=== PATIENT | male | born 1945 | race Caucasian/White ===

== ENCOUNTER 2016-11-30 13:45 | Emergency (ER) | payer MEDICARE, BC ==
[~2016-11-30] VITALS: Ht 180.3 cm; Wt 93.0 kg
[~2016-11-30 13:45] MED LIST: CLIN1CAP5 PO; LOSA50TA PO; WARF5TAB PO
[2016-11-30 13:49] VITALS: BP 152/82; PULSE 75; RESP 20; TEMP 98.4; O2SAT 97
--- NOTE | 2016-11-30 13:50 | PD ---
Physical Exam Date Seen by Provider: Nov 30, 2016 Time Seen by Provider: 13:48 Narrative 71 yo male here for evaluation of wound to the back of the right leg. Cut it at [employer] on Monday. Per patient is oozing. Was seen and told it is too late for sutures. Been doing wound care. No other complaints. Vitals are stable in triage. Awaiting Bed placement. [facility] Medical Record Reviewed: Yes Supervised Visit with CINDY: No Diego Moy Nov 30, 2016 13:50
[2016-11-30] MEDS ORDERED: COUM5TAB PO (14:04)
[2016-11-30] MEDS ORDERED: JANT5TAB PO (14:04)
[2016-11-30] MEDS ORDERED: LOSA50TA PO (14:04)
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
[2016-11-30] MEDS ORDERED: CEPH-460 PO (14:20)
== END 2016-11-30 14:39 | disposition home or self-care (01) ==
LOC: NEPK 13:45
DX: S81.811A Laceration without foreign body, right lower leg, initial encounter (principal); W26.9XXA Contact with unspecified sharp object(s), initial encounter; Y92.512 Supermarket, store or market as the place of occurrence of the external cause; I10 Essential (primary) hypertension
CPT/HCPCS: 99283